=== PATIENT | male | born 2000 | race Caucasian/White ===

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

== ENCOUNTER 2022-09-16 00:33 | Inpatient (IN) | payer OTHER ==
[~2022-09-16] VITALS: Ht 175.3 cm; Wt 83.9 kg
[~2022-09-16 00:33] MED LIST changes: +METO5A
[2022-09-16 01:23] LABS: BASOPHILS ABSOLUTE AUTO 0.02 K/mm3 (0.00-0.23); BASOPHILS PERCENT AUTO 0 % (0-2); EOSINOPHILS ABSOLUTE AUTO 0.18 K/mm3 (0.00-0.68); EOSINOPHILS PERCENT AUTO 2 % (0-6); Hematocrit 46.5 % (37.0-53.0); Hemoglobin 15.3 g/dL (13.5-17.5); IMMATURE GRAN ABSOLUTE AUTO 0.02 K/mm3 (0.00-0.10); IMMATURE GRAN PERCENT AUTO 0 % (0-1); LYMPHOCYTES ABSOLUTE AUTO 2.29 K/mm3 (0.84-5.20); LYMPHOCYTES PERCENT AUTO 19 % (21-46); MONOCYTES ABSOLUTE AUTO 0.77 K/mm3 (0.16-1.47); MONOCYTES PERCENT AUTO 7 % (4-13); Mean Corpuscular HGB 28.9 pg (26.0-34.0); Mean Corpuscular HGB Conc 32.9 g/dL (31.5-36.5); Mean Corpuscular Volume 88 fL (80-100); Mean Platelet Volume 9.8 fL (9.1-12.4); NEUTROPHILS ABSOLUTE AUTO 8.56 K/mm3 (1.96-9.15); NEUTROPHILS PERCENT AUTO 72 % (41-73); Platelet Count 243 K/mm3 (150-400); RDW Coefficient Variation 11.8 % (11.7-14.2); Red Blood Cell Count 5.29 M/mm3 (4.30-5.90); White Blood Cell Count 11.84 K/mm3 (4.00-11.30)
[2022-09-16 01:24] LABS: Source, Urine Voided
[2022-09-16 01:41] LABS: Albumin, Blood 4.4 g/dL (3.4-5.0); Albumin/Globulin Ratio 1.1 (0.8-1.8); Bilirubin, Total 0.6 mg/dL (0.1-1.0); Bun/Creatinine Ratio 20.6 (12.0-20.0); Calcium, Blood 9.8 mg/dL (8.5-10.1); Creatinine, Blood 1.02 mg/dL (0.60-1.20); Potassium, Blood 3.7 mmol/L (3.5-5.5); Total Protein, Blood 8.4 g/dL (6.4-8.2)
[2022-09-16 01:42] LABS: Appearance, Urine Clear (Clear); Bilirubin, Urine Neg (Neg); Blood, Urine Neg (Neg); Color, Urine Yellow (P-Yellow); Glucose Qualitative, Urine Neg (Neg); Ketones, Urine Neg (Neg); Leukocyte Esterase, Urine Neg (Neg); Nitrite, Urine Neg (Neg); Protein, Urine Neg (Neg); Specific Gravity, Urine 1.015 (1.003-1.022); Urobilinogen, Urine NORM (Normal); pH, Urine 6.5 (5.0-8.0)
--- NOTE | 2022-09-16 05:02 | NUR ---
ARRIVAL TO THE UNIT AT APPROX 0435, A/O X4- IND TRANSFER FROM WHEELCHAIR TO BED. VITALS TAKEN AND ASSESSMENT COMPLETE. NO REPORT OF N/V OR PAIN AT THIS TIME. ABDOMEN TENDER TO TOUCH AND BOWEL TONES HYPOACTIVE. REPORTS LAST BOWEL MOVEMENT TO BE 09/15/22 AT APPROX 2330. WILL CONTINUE TO MONITOR AND REPORT TO ONCOMING RN.
--- NOTE | 2022-09-16 14:23 | NUR ---
Spiritual Care Attempted. Pt. is in shower, but connect with Pts. spouse. Agree to return at a later time.
--- NOTE | 2022-09-16 18:07 | NUR ---
Pt. is awake in bed and welcomes my visit. Pt. is pleasant and rapport is established pretty quickly. Pt. displays evidence of confidence and fitness. Explored personal background, issues of florin and belief, and common connections. Prayed with Pt. Pt. verbalized gratitude for the spiritual casre visit.
--- NOTE | 2022-09-16 19:16 | NUR ---
SHIFT SUMMARY NO ACUTE CHANGES THIS SHIFT. PATIENT TOLERATING CLEAR LIQUIDS, DENIES ANY N/V THROUGHOUT SHIFT. REPORTS ONE SMALL BM THIS SHIFT, LOOSE. ENIES ANY ABDOMINAL PAIN. CALL LIGHT IN REACH.
[2022-09-17 04:47] LABS: Bun/Creatinine Ratio 19.3 (12.0-20.0); Calcium, Blood 9.1 mg/dL (8.5-10.1); Creatinine, Blood 1.09 mg/dL (0.60-1.20); Potassium, Blood 3.7 mmol/L (3.5-5.5)
--- NOTE | 2022-09-17 05:07 | NUR ---
SHIFT SUMMARY NO ACUTE CHANGES. PT DENIES N/V + ABD PAIN. INDEP IN ROOM. NELA SMALL AMOUNTS OF CLEAR LIQS. PT RESTED WELL. CALL LIGHT WITHIN REACH.
[2022-09-17 06:43] LABS: BASOPHILS ABSOLUTE AUTO 0.03 K/mm3 (0.00-0.23); BASOPHILS PERCENT AUTO 1 % (0-2); EOSINOPHILS ABSOLUTE AUTO 0.17 K/mm3 (0.00-0.68); EOSINOPHILS PERCENT AUTO 3 % (0-6); Hematocrit 42.1 % (37.0-53.0); Hemoglobin 13.9 g/dL (13.5-17.5); IMMATURE GRAN PERCENT AUTO 0 % (0-1); LYMPHOCYTES ABSOLUTE AUTO 1.99 K/mm3 (0.84-5.20); LYMPHOCYTES PERCENT AUTO 36 % (21-46); MONOCYTES ABSOLUTE AUTO 0.45 K/mm3 (0.16-1.47); MONOCYTES PERCENT AUTO 8 % (4-13); Mean Corpuscular HGB 29.3 pg (26.0-34.0); Mean Corpuscular Volume 89 fL (80-100); Mean Platelet Volume 10.5 fL (9.1-12.4); NEUTROPHILS PERCENT AUTO 52 % (41-73); Platelet Count 229 K/mm3 (150-400); RDW Coefficient Variation 11.9 % (11.7-14.2); RDW Standard Deviation 38.5 fL (35.1-46.3); Red Blood Cell Count 4.74 M/mm3 (4.30-5.90); White Blood Cell Count 5.54 K/mm3 (4.00-11.30)
[2022-09-17] MEDS ORDERED: PROM25 PO (10:23)
--- NOTE | 2022-09-17 10:39 | NUR ---
DISCHARGE INSTRUCTIONS ALERT AND ORIENTED. DENIED NAUSEA AND ABD PAIN. INDEPENDENT IN ROOM. PASSING GAS, NO BM AT THIS TIME. TOLERATED REGULAR DIET AND LIQUIDS. DISCHARGE ORDERS GIVEN. DISCHARGE INSTRUCTIONS GIVEN ON NEW MEDS, SYMPTOMS TO CALL ABOUT, AND FOLLOW UP WITH PCP. IV DC'D WNL. PATIENT LEFT UNIT AT 1025 WALKING WITH FAMILY MEMBER. WILL TAKE AUTO HOME.
== END 2022-09-17 10:29 | disposition home or self-care (01) | DRG 390 ==
LOC: ER 00:33 → SURS 03:37
PROVIDERS: Emergency Medicine; Family Medicine; ADMIT Internal Medicine
DX: K56.609 Unspecified intestinal obstruction, unspecified as to partial versus complete obstruction (principal); K21.9 Gastro-esophageal reflux disease without esophagitis; D72.828 Other elevated white blood cell count; Z98.890 Other specified postprocedural states; Z28.21 Immunization not carried out because of patient refusal
CPT/HCPCS: 36415; 74176; 80048; 80053; 81003; 83690; 85025; 96374; 96375; 99285-25; J1885; J2405; J2550